=== PATIENT | female | born 1960 | race Caucasian/White ===

== ENCOUNTER 2025-01-30 20:32 | Inpatient (IN) | payer MEDICARE, SELFPAY ==
--- OUTSIDE RECORDS SUMMARY | 2023-08-15 04:15 | XMS_ITS ---
Author Organization [facility] Address [address] [place] [address] Care Team Providers Care Lithographic Photographer Name Role Phone Nanette Easley Primary Care Provider Adam Pratt Unavailable [phone] REASON FOR VISIT Lumbar GORGE L4-5 with Local Encounters Encounter Location Date Provider Diagnosis [facility] [address] [place] [phone] 08/15/2023 Adam Tsai Plan Of Treatment Next Appt Details Provider Name:Vita Malhotra rd, 02/21/2025 02:15:00 PM, [address] [place] [address], [phone], Progress Notes * CT ESTRADAINDOB:1960 (64 yo F)Acc No.[id number]:08/15/2023 Patient:?HELADIO ESTRADA :?Adam Tsai MDDOB:1960???Age:63 Y???Sex: FemaleDate:4Phone:[phone]:[address] [place] [address], [phone]:Nanette Easley * Images: * Electronic signature of Adam Tsai MD on 01/30/2025 at 10:06 PM ESTSign off status: Pending * Provider: Henry Tsai MD Date: 0 08/15/2023 Generated for Printing/Faxing/eTransmitting on:?01/30/2025 10:06 PM EST
--- OUTSIDE RECORDS SUMMARY | 2023-09-04 08:30 | XMS_ITS ---
Author Organization [facility] Address [address] [place] [address] Care Team Providers Care Java Software Developer Name Role Phone Nanette Easley Primary Care Provider Adam Pratt Unavailable [phone] Vita Ivey Unavailable [phone] REASON FOR VISIT B/L GTB inj Encounters Encounter Location Date Provider Diagnosis [facility] [address] [place] [phone] 09/04/2023 Vita Ivey Plan Of Treatment Next Appt Details Provider Name:Vita Malhotra rd, 02/21/2025 02:15:00 PM, [address] [place] [address], [phone], Progress Notes * CT ESTRADAINDOB:1960 (64 yo F)Acc No.[id number]:09/04/2023 Patient:?HELADIO ESTRADA :?AMENA ByrnesDOB:1960???Age: 63 Y???Sex:FemaleDate:4Phone:[phone]:[address] [place], [place]-[address]Pcp:Nanette Easley * Images: * Electronic signature of Vita Ivey CNP on 01/30/2025 at 10:07 PM ESTSign off status: Pending * Provider: AMENA Covington Date: 0 09/04/2023 Generated for Printing/Faxing/eTransmitting on:?01/30/2025 10:07 PM EST
--- OUTSIDE RECORDS SUMMARY | 2024-02-05 08:30 | XMS_ITS ---
Author Organization [facility] Address [address] [place] [address] Care Team Providers Care Jig And Fixture Repairer Name Role Phone Nanette Easley Primary Care Provider Adam Pratt Unavailable [phone] Arlene Chun Unavailable [phone] REASON FOR VISIT Re eval- wants to get another inj Encounters Encounter Location Date Provider Diagnosis [facility] [address] [place] [phone] 02/05/2024 Arlene Chun Plan Of Treatment Next Appt Details Provider Name:Vita Malhotra rd, 02/21/2025 02:15:00 PM, [address] [place] [address], [phone], Progress Notes * JACKIE ESTRADAOB:1960 (64 yo F)Acc No.[id number]:02/05/2024 Patient:?HELADIO ESTRADA :?Arlene Chun CNPDOB:1960???Age:63 Y???Sex:FemaleDate:4Phone:[phone]:[address] [place], [place]Pcp:Nanette Easley Subjective: * Chief Complaints: * 1 . Re eval- wants to get another inj. * Medical History: Objective: * Vitals: Assessment: Plan: * Treatment: Forms: * Images: * Electronic signature of Arlene Chun CNP on 01/30/2025 at 10:08 PM ESTSign off status: Pending * Provider: Estella Chun CNP Date: 04/07/2023 Generated for Printing/Faxing/eTransmitting on:?01/30/2025 10:08 PM EST
--- OUTSIDE RECORDS SUMMARY | 2024-04-02 05:00 | XMS_ITS ---
Author Organization [facility] Address [address] [place] [address] Care Team Providers Care Fork Truck Driver Name Role Phone Nanette Easley Primary Care Provider Adam Pratt Unavailable [phone] Vita Ivey Unavailable [phone] REASON FOR VISIT B/L GTB inj Encounters Encounter Location Date Provider Diagnosis [facility] [address] [place] [phone] 04/02/2024 Vita Ivey Plan Of Treatment Next Appt Details Provider Name:Vita Malhotra rd, 02/21/2025 02:15:00 PM, [address] [place] [address], [phone], Medications Administered Medication Instructions Date of Administration Dosage Notes dexamethasone mLDepo-Eejeyk37 cHsntajszvr96/14/20254 mLBUPIVACAINE mL Progress Notes * JACKIE ESTRADAOB:1960 (64 yo F)Acc No.[id number]:04/02/2024 Patient:?HELADIO ESTRADA :?Vita Ivey APRN-RUPERTDOB:1960???Age: 63 Y???Sex:FemaleDate:04/02/2024Phone:[phone]:[address] [place], [place]-[address]Pcp:Nanette Easley * Images: * Electronic signature of Vita Ivey CNP on 01/30/2025 at 10:08 PM ESTSign off status: Pending * Provider: AMENA Covington Date: 0 04/02/2024 Generated for Printing/Faxing/eTransmitting on:?01/30/2025 10:08 PM EST
--- OUTSIDE RECORDS SUMMARY | 2024-08-03 09:30 | XMS_ITS ---
Author Organization [facility] Address [address] [place] [address] Care Team Providers Care S Iron Worker Name Role Phone Nanette Easley Primary Care Provider Adam Pratt Unavailable [phone] Arlene Chun Unavailable [phone] REASON FOR VISIT re eval Encounters Encounter Location Date Provider Diagnosis [facility] [facility] [address] [place] [phone] 08/03/2024 Arlene Chun Plan Of Treatment Next Appt Details Provider Name:Vita Malhotra rd, 02/21/2025 02:15:00 PM, [address] [place] [address], [phone], Progress Notes * CT ESTRADAINDOB:1960 (64 yo F)Acc No.[id number]:08/03/2024 Patient:?HELADIO ESTRADA :?Arlene Chun CNPDOB:1960???Age:64 Y???Sex:FemaleDate:08/03/2024Phone:[phone]:[address] [place], [place]-[address]Pcp:Nanette Easley Subjective: * Chief Complaints: * 1 . Re eval. * Medical History: Objective: * Vitals: Assessment: Plan: * Treatment: Forms: * Images: * Electronic signature of Arlene Chun CNP on 01/30/2025 at 10:08 PM ESTSign off status: Pending * Provider: Estella Chun CNP Date: 0 08/03/2024 Generated for Printing/Faxing/eTransmitting on:?01/30/2025 10:08 PM EST
--- OUTSIDE RECORDS SUMMARY | 2024-09-06 10:00 | XMS_ITS ---
Author Organization [facility] Address [address] [place] [address] Care Team Providers Care Business Office Technician Name Role Phone Nanette Easley Primary Care Provider Adam Pratt Unavailable [phone] Vita Ivey Unavailable [phone] REASON FOR VISIT re eval Medications Medication SIG (Take, Route, Frequency, Duration) Notes Start Date End Date Status Linzess 145 mcg 1 cap(s) orally once a day ActiveSingulair 10 mg1 tab(s) orally once a dayActivecitalopram 40 mg1 tab(s) orally once a dayActiveNaproxen 500 mg 1 tab(s) orally 2 times a day As needed ActiveLyrica 200 mg1 cap(s) orally 3 times a day; Duration: 30 days07/01/2024 Activefenofibrate 134 mg1 cap(s) orally once a dayActiveatorvastatin 40 mg1 tab(s) orally once a dayActiveImitrexActivecyclobenzaprine 10 mg1 tab(s) orally 2 times a dayActive Encounters Encounter Location Date Provider Diagnosis [facility] [address] [place] [phone] 09/06/2024 Vita Ivey Plan Of Treatment Next Appt Details Provider Name:Vita Malhotra rd, 02/21/2025 02:15:00 PM, [address] [place], [phone], Progress Notes * DORIS ESTRADA:1960 (64 yo F)Acc No.[id number]:09/06/2024 Patient:HELADIO PAVON :?AMENA ByrnesDOB:1960???Age: 64 Y???Sex:FemaleDate:09/06/2024Phone:[phone]:[address] [facility], [phone]:Nanette Easley Subjective: * Chief Complaints: * 1 . Re eval. * Medical History: * Medications: T aking cyclobenzaprine 10 mg tablet 1 tab(s) orally 2 times a day , Taking atorvastatin 40 mg tablet 1 tab(s) orally once a day , Taking fenofibrate 134 mg capsule 1 cap(s) orally once a day , Taking Imitrex , Taking Naproxen 500 mg delayed release tablet 1 tab(s) orally 2 times a day As needed, Taking Singulair 10 mg tablet 1 tab(s) orally once a day , Taking Linzess 145 mcg capsule 1 cap(s) orally once a day , Taking citalopram 40 mg tablet 1 tab(s) orally once a day , Taking Lyrica 200 mg capsule 1 cap(s) orally 3 times a day Objective: * Vitals: Assessment: Plan: * Treatment: Forms: * Images: * Electronic signature of Vita Ivey CNP on 01/30/2025 at 10:07 PM ESTSign off status: Pending * Provider: AMENA Covington Date: 0 09/06/2024 Generated for Printing/Faxing/eTransmitting on:?01/30/2025 10:07 PM EST
[2025-01-30] VITALS (31 sets, daily range): BP systolic 74–97; BP diastolic 42–58; PULSE 103–118; TEMP 37.1–38.3; O2SAT 86–98; BMI 30.7
--- NOTE | 2025-01-30 20:41 | XR_ITS ---
[facility] [place] [id number] Patient Name: HELADIO ESTRADA MRN: [id number] date: 1960 Sex: F Assigned Patient Location: ED.MAIN Current Patient Location: [place] Accession/Order Number: [id number] Exam Date: 01/30/2025 20:50 Report Date: 01/31/2025 09:29 At the request of: AYUSH BURR DO Procedure: XR chest 2V PA AND LATERAL CHEST: CLINICAL HISTORY: COPD . Cough, shortness of breath and right pleuritic chest pain COMPARISON: 12/16/2020 The lungs are hyperinflated. There are subtle reticular nodular changes, greatest at the right base where there is also blunting of the costophrenic angle. This is probably a combination of pleural and parenchymal change. A trace amount pleural fluid on the left is also possible. No pneumothorax is seen. The cardiac, hilar and mediastinal silhouettes are similar including a small to moderate size hiatal hernia. There is slight levoscoliotic curvature as well as mild endplate spurring at the spine. Hemostasis clips are present at the right breast. XR/XR chest 2V IMPRESSION: OBSTRUCTIVE LUNG DISEASE. PLEURAL-PARENCHYMAL CHANGES, GREATER ON THE RIGHT. HIATAL HERNIA. Impression dictated by: Vianca Crowder M.D. 01/31/2025 9:29 AM Dictation Location: [place] [address] Electronically authenticated by: [id number] Y Date: 01/31/2025 09:29
--- NOTE | 2025-01-30 20:42 | ECG_ITS ---
[facility] Test Date: 2025-01-30 Pat Name: Ivan Ramsey Department: Room: - Gender: Female Fixed Wing Aircraft Crew Chief: : 1960 Requested By: [id number] Order Number: [id number] Reading MD: GUALBERTO GARCIA M.D. Measurements Intervals [place] Rate: 114 P: 79 [place]: 136 QRS: 76 QRSD: 74 T: 56 QT: 324 QTc: 392 Interpretive Statements 1120 Sinus tachycardia [address] depression [address] & Twave abnormality 0102 ARTIFACT PRESENT 9150 abnormal ECG No previous ECG available for comparison Electronically Signed On 01-30-2025 22:53:24 EST by GUALBERTO GARCIA M.D.
--- NOTE | 2025-01-30 21:01 | ED_ITS ---
HPI HPI - General Adult General Chief complaint: Shortness of Breath/Dyspnea Stated complaint: SOB Time Seen by Provider: 01/30/25 20:41 Source: patient Mode of arrival: ambulance Limitations: no limitations History of Present Illness HPI narrative: Patient is a 64-year-old female, history significant for hypercholesterolemia and COPD not on home oxygen, presenting to the emergency department for 2-day history of cough and shortness of breath. Patient states that she feels short of breath and has been having right-sided pleuritic chest pain for the last 2 days. She states she has a history of pneumonia, this feels similar. She denies history of previous [place] or coronary artery disease/coronary stents. She denies fevers or chills. No nausea or vomiting, or diarrhea. She states she had a nebulized treatment by EMS which helped her symptoms. She still smokes 1 pack of cigarettes daily. Related Data Home Medications ?Medication ?Instructions ?Recorded ?Confirmed albuterol sulfate 2.5 mg/3 mL mg 01/30/25 (0.083 %) solution for nebulization atorvastatin 40 mg tablet mg 01/30/25 budesonide-formoterol HFA 160 inhalation 01/30/25 mcg-4.5 mcg/actuation aerosol inhaler (Symbicort) citalopram 40 mg tablet mg 01/30/25 galcanezumab-gnlm 120 mg/mL mg subcut 01/30/25 subcutaneous pen injector (Emgality Pen) linaclotide 72 mcg capsule mcg 01/30/25 (Linzess) montelukast 10 mg tablet mg 01/30/25 pantoprazole 40 mg tablet,delayed mg PO 01/30/25 release Allergies Allergy/AdvReac Type Severity Reaction Status Date / Time No Known Drug Allergies Allergy Verified 01/30/25 20:43 Opioid HPI Opioid Management Most Recent Opioid Data: Last Pain Scale 7 01/30/25, 20:39 Review of Systems ROS Status of ROS 10 or more systems reviewed and unremark able except as noted in history and below PFSH PFSH Social History Little interest or pleasure in doing things: not at all Feeling down, depressed, or hopeless: not at all Exam Narrative Exam Narrative: CONSTITUTIONAL: Appears uncomfortable but in no acute distress. Speaking in truncated sentences. Mildly tachypneic. Answering questions and following commands appropriately. SKIN: Was warm and dry. EYES: Sclerae white. EARS, NOSE, THROAT: Moist oral mucosa. RESPIRATORY: Mild bilateral expiratory wheezes. There are crackles at the right lung base. Mildly tachypneic with use of accessory muscles. CARDIOVASCULAR: Tachycardic rate and regular rhythm. There is no S3, S4, murmur, rub. GASTROINTESTINAL: Abdomen is nondistended. MUSCULOSKELETAL: No peripheral edema. NEUROLOGIC: Patient is awake and alert. Facies were symmetrical. Constitutional Vital Signs, click to edit/add: Last Vital Signs Temp 98.8 F 01/31/25 00:38 Pulse 103 H 01/31/25 01:20 Resp 17 01/31/25 01:20 BP 94/57 01/31/25 00:38 Pulse Ox 94 L 01/31/25 01:29 O2 Del Method Nasal Cannula 01/31/25 01:29 O2 Flow Rate 3 01/31/25 01:29 Course Vital Signs Vital signs: Vital Signs Temperature 101.0 F H 01/30/25 20:39 Pulse Rate 118 H 01/30/25 20:39 Respiratory Rate 32 H 01/30/25 20:39 Blood Pressure 74/58 L 01/30/25 20:39 Pulse Oximetry 86 L 01/30/25 20:39 Oxygen Delivery Method Room Air 01/30/25 20:39 Temperature 98.8 F 01/31/25 00:38 Pulse Rate 103 H 01/31/25 01:20 Respiratory Rate 17 01/31/25 01:20 Blood Pressure 94/57 01/31/25 00:38 Pulse Oximetry 94 L 01/31/25 01:29 Oxygen Delivery Method Nasal Cannula 01/31/25 01:29 Oxygen Delivery Flow Rate 3 01/31/25 01:29 Medical Decision Making MDM Narrative Medical decision making narrative: Patient is a 64-year-old female, history significant for COPD, presenting to the emergency department with a 2-day history of shortness of breath, cough, and right-sided pleuritic chest pain. Her vital signs on arrival were significant for hypoxia to 86% on room air. She is now saturating 93% on 5 L nasal cannula. She is borderline hypotensive, tachycardic, and febrile with a temperature of 101 ?F. She is tachypneic with a respiratory rate of 32 breaths/min with mild expiratory wheezes and crackles at the right lung base. My clinical impression is that the patient's presentation is secondary to community-acquired pneumonia, COPD exacerbation. IV was established and laboratory studies were obtained to rule out ACS, arrhythmia, or other electrolyte/metabolic derangement. She was treated with nebulized albuterol/ipratropium. She was given 1.5 L bolus IV normal saline. 12 Lead EKG: Sinus tachycardia at a rate of 114. Normal axis. No ST segment elevations. Subtle ST segment depressions globally. QRS, [place], and QTc interval within normal limits. Final impression: Sinus tachycardia with subtle ST depressions. No evidence of STEMI. Chest x-ray independent reviewed by myself demonstrated hazy airspace opacities bilaterally, worse in the right lower lobe. Concerning for developing pneumonia. Laboratory studies were significant for microcytic, hypochromic anemia but hemoglobin of 5.9. The patient states she has chronic microcytic anemia, and has not had an iron transfusion in over a year. She states she did have an EGD/colonoscopy 1 year ago which was normal. For her acute on chronic anemia, she was given 1 unit of packed red blood cells. A fecal occult blood test was obtained which was negative. No leukocytosis. No electrolyte derangement. No significant metabolic derangement. Lactic acid level negative. Troponin not elevated. BNP elevated to 1966. Influenza/COVID swabs negative. CT angiography of the chest demonstrated diffuse interstitial infiltrate with multiple small nodular densities in tree-in-bud appearance suggesting bronchiolitis, probably related to infectious/inflammatory etiology. Bilateral trace pleural effusions. No evidence of PE. Patient's presentation is consistent with COPD exacerbation, right lower lobe pneumonia, and acute on chronic microcytic anemia. She was consented and given 1 unit of packed red blood cells. She was empirically treated with IV ce ftriaxone and IV doxycycline for CAP. Patient will require admission to the hospital for further care. I did consult discussed the patient with hospitalist, Dr. Porter, who accept the patient to his service. At the time of admission, patient is saturating 94% on 3 L nasal cannula. She is afebrile. She has a heart rate 103 bpm with a blood pressure of 94/57 mmHg. FINAL IMPRESSION: #Acute hypoxic respiratory failure secondary to COPD exacerbation, community-acquired pneumonia #Acute on chronic microcytic anemia requiring blood transfusion DISPOSITION: Admitted to the hospital CONDITION: Fair Medical Records Medical records reviewed: Yes I reviewed the patient's medical records Lab Data Lab results reviewed: Yes I reviewed the patient's lab results Labs: Lab Results 01/30/25 01/30/25 01/30/25 Range/Units 20:50 20:54 21:29 WBC 11.1 H (4.0-11.0) 10^3/uL RBC 3.10 L (4.20-5.40) 10^6/uL Hgb 5.9 L* (12.0-16.0) g/dL Hct 22.3 L* (36.0-48.0) % MCV 71.9 L (81.0-99.0) fL MCH 19.0 L (26.7-34.0) pg MCHC 26.5 L (29.9-35.2) g/dL RDW 19.2 H (11.0-15.0) % Plt Count 317 (150-450) 10^3/uL MPV 10.7 (9.5-13.5) fL Seg Neuts % (Manual) 89.0 H (43.0-75.0) Lymphocytes % (Manual) 4.0 L (20.5-60.0) % Monocytes % (Manual) 6.0 (1.7-12.0) % Eosinophils % (Manual) 0.0 L (0.9-7.0) % Basophils % (Manual) 0.0 L (0.2-2.0) % Myelocytes % 1.0 Neutrophils # (Manual) 9.87 H (1.4-6.5) 10^3/uL Lymphocytes # (Manual) 0.44 L (1.20-3.80) 10^3/uL Monocytes # (Manual) 0.66 (0.30-0.80) 10^3/uL Eosinophils # (Manual) 0.00 (0.00-0.70) 10^3/uL Basophils # (Manual) 0.00 (0.00-0.10) 10^3/uL Myelocytes # 0.11 Sodium 134 L (136-145) mmol/L Potassium 3.8 (3.5-5.1) mmol/L Chloride 98 (98-107) mmol/L Carbon Dioxide 27.8 (21.0-32.0) mmol/L Anion Gap 12.0 BUN 13.0 (7.0-18.0) mg/dL Creatinine 0.74 (0.55-1.02) mg/dL Est GFR ( Amer) >60 (>=60 mL/min/1.73m^2) Est GFR (Non-Af Amer) >60 (>=60 mL/min/1.73m^2) BUN/Creatinine Ratio 17.6 Glucose 181 H (74-106) mg/dL Lactate 1.2 (0.4-2.0) mmol/L Calcium 9.0 (8.5-10.1) mg/dL Total Bilirubin 0.6 (0.2-1.0) mg/dL AST 15 (15-37) U/L ALT 11 L (14-59) U/L Alkaline Phosphatase 80 (46-116) U/L Troponin I High Sens 39.2 (4.0-51.3) pg/mL NT-Pro-B Natriuret Pep 1966.0 H* (<=900.0) pg/mL Total Protein 6.8 (6.4-8.2) g/dL Albumin 2.6 L (3.4-5.0) g/dL Globulin 4.2 g/dL Albumin/Globulin Ratio 0.6 Stool Occult Blood Influenza Type A Ag Negative Influenza Type B Ag Negative SARS-CoV-2 Ag (CV2AG) Negative (NEGATIVE) Blood Type A Positive Antibody Screen Negative Crossmatch See Detail 01/31/25 Range/Units 00:43 WBC (4.0-11.0) 10^3/uL RBC (4.20-5.40) 10^6/uL Hgb (12.0-16.0) g/dL Hct (36.0-48.0) % MCV (81.0-99.0) fL MCH (26.7-34.0) pg MCHC (29.9-35.2) g/dL RDW (11.0-15.0) % Plt Count (150-450) 10^3/uL MPV (9.5-13.5) fL Seg Neuts % (Manual) (43.0-75.0) Lymphocytes % (Manual) (20.5-60.0) % Monocytes % (Manual) (1.7-12.0) % Eosinophils % (Manual) (0.9-7.0) % Basophils % (Manual) (0.2-2.0) % Myelocytes % Neutrophils # (Manual) (1.4-6.5) 10^3/uL Lymphocytes # (Manual) (1.20-3.80) 10^3/uL Monocytes # (Manual) (0.30-0.80) 10^3/uL Eosinophils # (Manual) (0.00-0.70) 10^3/uL Basophils # (Manual) (0.00-0.10) 10^3/uL Myelocytes # Sodium (136-145) mmol/L Potassium (3.5-5.1) mmol/L Chloride (98-107) mmol/L Carbon Dioxide (21.0-32.0) mmol/L Anion Gap BUN (7.0-18.0) mg/dL Creatinine (0.55-1.02) mg/dL Est GFR ( Amer) (>=60 mL/min/1.73m^2) Est GFR (Non-Af Amer) (>=60 mL/min/1.73m^2) BUN/Creatinine Ratio Glucose (74-106) mg/dL Lactate (0.4-2.0) mmol/L Calcium (8.5-10.1) mg/dL Total Bilirubin (0.2-1.0) mg/dL AST (15-37) U/L ALT (14-59) U/L Alkaline Phosphatase (46-116) U/L Troponin I High Sens (4.0-51.3) pg/mL NT-Pro-B Natriuret Pep (<=900.0) pg/mL Total Protein (6.4-8.2) g/dL Albumin (3.4-5.0) g/dL Globulin g/dL Albumin/Globulin Ratio Stool Occult Blood Negative Influenza Type A Ag Influenza Type B Ag SARS-CoV-2 Ag (CV2AG) (NEGATIVE) Blood Type Antibody Screen Crossmatch Imaging Data CT scan - chest: Attestation: I personally reviewed and interpreted this imaging study as follows: ECG Data Attestation: I personally reviewed and interpreted this ECG as follows: Discharge Plan Discharge Chief Complaint: Shortness of Breath/Dyspnea Clinical Impression: Community acquired pneumonia, Hypoxia, COPD exacerbation Patient Disposition: Admitted As Inpatient Time of Disposition Decision: 02:22 Condition: Fair
[2025-01-30 21:09] LABS: Mean Corpuscular HGB Conc 26.5 g/dL (29.9-35.2); Mean Corpuscular Hemoglobin 19.0 pg (26.7-34.0); Mean Corpuscular Volume 71.9 fL (81.0-99.0); Platelet Count 317 10^3/uL (150-450); Red Blood Count 3.10 10^6/uL (4.20-5.40); White Blood Count 11.1 10^3/uL (4.0-11.0)
[2025-01-30 21:11] LABS: Hematocrit 22.3 % (36.0-48.0); Hemoglobin 5.9 g/dL (12.0-16.0)
[2025-01-30] MEDS: IPRATROPIUM/ALBUTEROL SULFATE 3 ML AMPUL.NEB 6 ML IH (21:19)
[2025-01-30] MEDS: 0.9 % SODIUM CHLORIDE 1,000 ML 1000 ML IV (21:20)
[2025-01-30] MEDS: IBUPROFEN 600 MG TABLET PO (21:21)
[2025-01-30 21:25] LABS: SARS-CoV-2 Ag NEGATIVE (NEGATIVE)
[2025-01-30 21:30] LABS: Lactate/Lactic Acid 1.2 mmol/L (0.4-2.0)
[2025-01-30 21:34] LABS: Basophils Abs Manual 0.00 10^3/uL (0.00-0.10); Basophils Percent Manual 0.0 % (0.2-2.0); Eosinophils Absolute Manual 0.00 10^3/uL (0.00-0.70); Eosinophils Percent Manual 0.0 % (0.9-7.0); Lymphocytes Absolute Manual 0.44 10^3/uL (1.20-3.80); Lymphocytes Percent Manual 4.0 % (20.5-60.0); Monocytes Absolute Manual 0.66 10^3/uL (0.30-0.80); Monocytes Percent Manual 6.0 % (1.7-12.0); Myelocytes % Manual 1.0; Myelocytes Absolute Manual 0.11; Segmented Neut Absolute Manual 9.87 10^3/uL (1.4-6.5); Segmented Neutrophils % Manual 89.0 (43.0-75.0)
[2025-01-30 21:35] LABS: Alanine Aminotransferase 11 U/L (14-59); Albumin Globulin Ratio 0.6; Albumin Level 2.6 g/dL (3.4-5.0); Alkaline Phosphatase 80 U/L (46-116); Aspartate Amino Transferase 15 U/L (15-37); Blood Urea Nitrogen 13.0 mg/dL (7.0-18.0); Calcium 9.0 mg/dL (8.5-10.1); Carbon Dioxide 27.8 mmol/L (21.0-32.0); Estimated GFR (African America >60 (>=60 mL/min/1.73m^2); Estimated GFR (Non-African Ame >60 (>=60 mL/min/1.73m^2); Globulin 4.2 g/dL; Glucose 181 mg/dL (74-106); Total Protein 6.8 g/dL (6.4-8.2)
[2025-01-30 21:37] LABS: NT Pro B Type Natriuretic Pept 1966.0 pg/mL (<=900.0)
[2025-01-30 21:41] LABS: Anion Gap 12.0; Chloride 98 mmol/L (98-107); Potassium 3.8 mmol/L (3.5-5.1); Sodium 134 mmol/L (136-145)
--- OUTSIDE RECORDS SUMMARY | 2025-01-30 22:07 | XMS_ITS | Clinical Summary ---
Author Organization [facility] Address [address] [place] [address] Care Team Providers Care Mothercraft Nurse Name Role Phone Nanette Easley MD Unavailable Avi Rabago DO Unavailable Allergies Active AllergyReactionsCriticalityNoted DateCommentsDust Mite Lbevuya1208/28/2023 Medications MedicationSigDispense QuantityRefillsLast FilledStart DateEnd DateStatus atorvastatin (Lipitor) 40 MG tablet Take 1 tablet by mouth DailyActive citalopram (CeleXA) 10 MG tablet every 12 (twelve) hoursActive etodolac (Lodine) 300 MG capsule every 8 (eight) hoursActive fenofibrate (Tricor) 145 MG tablet Take 1 tablet by mouth Daily07/01/2023ctive folic acid (Folvite) 1 MG tablet 1 (one) time each day at the same timeActive montelukast (Singulair) 10 MG tablet 1 (one) time each day at the same timeActive ondansetron ODT (Zofran-ODT) 4 MG disintegrating tablet Take 1 tablet by mouth every 8 (eight) hours if neededActive pregabalin (Lyrica) 200 MG capsule 1 (one) time each day at the same timeActive albuterol (2.5 MG/3ML) 0.083% nebulizer solution INHALE 3ml via NEBULIZER EVERY 4 TO 6 HOURS NEEDED FOR WHEEZING OR SHORTNESS OF IIAHRM5806/25/2023ctive Ascorbic Acid (vitamin C) 1000 MG tablet Take 1 tablet by mouth DailyActive b complex vitamins capsule Take 1 capsule by mouth DailyActive wqpjwvzgqw-zifiedqlzzgxc-mlpeezsu 50-325-40 MG tablet TAKE 1 TABLET BY MOUTH EVERY 6 HOURS NEEDED FOR migraine. TO last 30 DAYS. 05/21/2023ctive cholecalciferol (Vitamin D-3) 125 MCG (5000 UT) capsule Take 1 capsule by mouth DailyActive famotidine (Pepcid) 10 MG tablet Take 1 tablet by mouth 2 (two) times a day as neededActive fenofibrate micronized (Lofibra) 134 MG capsule Take 134 mg by mouth Daily05/21/2023ctive ferrous sulfate 325 (65 Fe) MG tablet Take 1 tablet by mouth in the morning. Take with meals.04/17/2023ctive Linzess 72 MCG capsule Take 72 mcg by mouth DailyActive pantoprazole (ProtoNix) 40 MG EC tablet Take 40 mg by mouth Daily09/09/2023ctive citalopram (CeleXA) 40 MG tablet Take 40 mg by mouth Daily09/09/2023ctive hydrOXYzine HCl (Atarax) 25 MG tablet Take 25 mg by mouth every 8 (eight) hours if needed for ljgzbov9312/26/2023ctive hyoscyamine ER (Levbid) 0.375 MG 12 hr tablet Take 375 mcg by mouth in the morning and 375 mcg before bedtime.02/24/2024tive Spiriva HandiHaler 18 MCG inhalation capsule take TWO inhalations BY MOUTH OF ONE CAPSULE ONCE DAILY02/24/2024tive galcanezumab (Emgality) 120 MG/ML auto-injector Indications:Other migraine without status migrainosus, not intractableInject 1 Syringe (120 mg) under the skin every 30 (thirty) days 1.12 mL 605Active SUMAtriptan (Imitrex) 100 MG tablet Indications:Other migraine without status migrainosus, not intractableTake 1 tablet (100 mg) by mouth 1 (one) time if needed for migraine (TAKE 1 TABLET BY MOUTH AT ONSET OF MIGRAINE. MAY REPEAT ONCE AFTER 2 HOURS IF NEEDED DO NOT EXCEED TWO doses IN 24 hours) 9 tablet 5Active cyclobenzaprine (Flexeril) 10 MG tablet Indications:Other migraine without status migrainosus, not intractableTake 1 tablet (10 mg) by mouth 2 (two) times a day as needed for muscle spasms 60 tablet 5Active Active Problems ProblemNoted DateDiagnosed DateOccipital xvggqlais06/11/4254Ymrategv07/11/2024 Overview (09/29/2023): Patient has a history of chronic migraine sometimes with visual aura, previously with 15+ migrainesper month. With Emgality, migraine frequency and intensity has substantially improved. She does have a few minor headaches with weather changes. She has failed gabapentin, lyrica, topiramate, lamotrigine, singulair, cyclobenzaprine, and Aimovig. Avoiding BP lowering medications due to hypotension. Currently getting 2-3 breakthrough migraines per month which are amendable to sumatriptan and sleep.She does admit that severe migraines are debilitating and cause visual disturbance which interfereswith her job. - PLAN - Continue Emgality monthly injections. - Continue sumatriptan 100mg as needed for breakthrough migraines - Recommended optho evaluation, per patient she does this annually - Continue cyclobenzaprine 10mg BID, prn - We will continue to allow up to 2 FMLA days for the patients migraine/neck pain as this has been provided to her in the past and she does not feel safe completing her work day when migraines are severe. 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 She is status post surgical intervention approximately in [address] Fink. She is seeing pain management for her lumbar spine and is interested in following with them for her cervicogenic pain. PLAN: - Previously referred to pain management for cervical spine/neck pain - Follow up with neurosurgery as recommended (Dr. Tsai) Family History Medical HistoryRelationNameCommentsHypertensionOtherRelationNameStatusComments Other Social History Tobacco UseTypesPacks/DayYears UsedDateSmoking Tobacco: Unknown Tobacco Cessation:Counseling Given: Not Answered Alcohol UseStandard Drinks/WeekCommentsNot Currently1 (1 standard drink = 0.6 oz pure alcohol)CommentsUnknownSex and Gender InformationValueDate Recorded Sex Assigned at BirthNot on fileLegal TkgEoocbw43/15/2023 6:39 PM EDTGender IdentityNot on fileSexual OrientationNot on file Last Filed Vital Signs Vital SignReadingTime TakenCommentsBlood Gfiyqdpu493/8103/17/2024 1:18 PM EST Wptcv41779/29/2025 1:18 PM ESTTemperature--Respiratory Rate--Oxygen Saturation-- Inhaled Oxygen Concentration--Nxlssf36.8 kg (165 lb)03/17/2024 1:18 PM ESTHeight 160 cm (5' 3 )10/06/2023 10:54 AM EDTBody Mass Index29.23010/06/2023 10:54 AM EDT Plan of Treatment Not on file Insurance Care Teams Team MemberRelationshipSpecialtyStart DateEnd Nanette Easley MD [address] [place] [address] Referring PhysicianFamily [facility]10/06/23 Avi Rabago DO [address] [place] [address] Referring PhysicianNeurology1
--- OUTSIDE RECORDS SUMMARY | 2025-01-30 22:07 | XMS_ITS | Clinical Summary ---
Author Organization [facility] Address [address] [place] [address] Care Team Providers Care Radiation Control Worker Name Role Phone Unavailable Primary Care Provider Unavailabl e Social History Tobacco UseTypesPacks/DayYears UsedDateSmoking Tobacco: Never Assessed CommentsUnknownSex and Gender InformationValueDate RecordedSex Assigned at Not on fileLegal ZwlFijsvq59/29/2022 9:21 PM EDTGender IdentityNot on fileSexual OrientationNot on file Plan of Treatment Not on file
--- OUTSIDE RECORDS SUMMARY | 2025-01-30 22:07 | XMS_ITS | Clinical Summary ---
Author Organization [facility] Address [address] [place], [place] [id number] Care Team Providers Care Welfare Worker Name Role Phone Tamiko Vaughn APRN.INTEGRITY ANALYST Primary Care Provide r Allergies No known active allergies Medications MedicationSigDispense QuantityRefillsLast FilledStart DateEnd DateStatus citalopram (CELEXA) 40 mg tablet Take 40 mg by mouth once daily.Active lamoTRIgine (LAMICTAL) 100 mg tablet Take 100 mg by mouth twice daily.Active etodolac (LODINE) 200 mg capsule Take 200 mg by mouth twice daily.Active omeprazole (PRILOSEC) 20 mg capsule Take 40 mg by mouth twice daily.Active hyoscyamine SR (LEVBID) 0.375 mg 12 hr tablet Take 0.375 mg by mouth every 12 hours as needed.Active HYDROcodone-Acetaminophen (NORCO) 10-325 mg per tablet Take 1 tablet by mouth every 6 hours as needed.Active SUMAtriptan-Naproxen (TREXIMET) 85-500 mg per tablet Take 1 tablet by mouth as needed.Active Active Problems ProblemNoted DateDiagnosed DateHiatal vyjuki6809/21/2014RUQ pain09/21/2014Nausea 09/21/2014 Family History RelationStatusCommentsFatherAliveMotherDeceasedSisterAlive Social History Tobacco UseTypesPacks/DayYears UsedDateSmoking Tobacco: Every NvvNolvswwdlw099 Alcohol UseStandard Drinks/WeekCommentsYes0 (1 standard drink = 0.6 oz pure alcohol)occasionallyCommentsUnknownSex and Gender InformationValueDate RecordedSex Assigned at BirthNot on fileLegal CtnJdtdht48/02/2012 10:23 AM EST Gender IdentityNot on fileSexual OrientationNot on file Last Filed Vital Signs Vital SignReadingTime TakenCommentsBlood Zlmfxkop345/7310/10/2014 1:08 PM EDT Trwzz950510/10/2014 1:08 PM DQMXshpzlbbexx14.8 ??C (98.2 ??F)10/10/2014 1:08 PM EDTRespiratory Rdum907110/10/2014 1:08 PM EDTOxygen Zpovujbrfo75%10/10/2014 1:08 PM EDTInhaled Oxygen Concentration--Zsarpf48.3 kg (203 lb 6.4 oz)09/21/2014 12:19 PM TPBHtafyk962.3 cm (5' 3.5 )09/21/2014 12:19 PM EDTBody Mass Index35.47 09/21/2014 12:19 PM EDT Plan of Treatment Health MaintenanceDue DateLast DoneCommentsAnxiety Qqsrehrjd75/08/1978Depression Sitokbtax18/08/1978HIV Eywpkfmrc76/08/1978Hepatitis C Lbkwpehhn17/08/1978 DTaP,Tdap,Td Vaccine (1 - Tdap)05/25/1978Mammogram Htwsjlkhq01/08/2000CT Gepsdzmvjjfe51/08/2005Cologuard (FIT-DNA)05/25/20049440Qvdivvqhvwa35/08/2005 Colorectal Cancer Ecsleswrq12/08/2005Diabetes Jlpvxxofi66/08/2005Fecal Occult Blood05/25/2004Lipid Yusjqtebo29/08/9841Olbzuewccdlzx59/08/2005Pneumococcal Vaccine: 50+ (1 of 1 - PCV)05/25/2009Shingrix Vaccine (1 of 2)05/25/2009dvance Directive Vyytloziwg09/08/2025one Density Ahthypkph61/08/2025ovid-19 Vaccine (1 - 2024- season)2024Influenza Vaccine (#1)2024RSV Vaccine (1 - 1-dose 75+ series)05/25/2034 Insurance MemberSubscriberPlan / Payer (Effective 2018-Present)Name:Ivan Ramsey Relation to Subscriber:SelfName:Ivan Ramsey Payer ID:Not on file Type:PPO Address: [place] [id number] Care Teams Team MemberRelationshipSpecialtyStart DateEnd Date Tamiko Vaughn APRN.INTEGRITY ANALYST PCP - GeneralFamily Medicine09/01/14
[2025-01-30] MEDS: DOXYCYCLINE HYCLATE 100 MG in 0.9 % SODIUM CHLORIDE 100 ML IV (22:08)
--- OUTSIDE RECORDS SUMMARY | 2025-01-30 22:08 | XMS_ITS | Clinical Summary ---
Author Organization [facility] Address [id number] [address] [place] [address] Care Team Providers Care Breeding Technician Name Role Phone TraceeNanette deal Estella DANCE THERAPIST-[facility] Primary Care Provider + Social History Tobacco UseTypesPacks/DayYears UsedDateSmoking Tobacco: Never AssessedChildcare AnswerDate OkchyimbDhllruvwpFpzsave00/12/2019EmploymentAnswerDate Recorded RfmshodvuhZmroxhp93/12/2019Purpose - LifeAnswerDate RecordedPurpose and direction in ikjnIursynr00/11/2021CommentsUnknownSex and Gender InformationValueDate RecordedSex Assigned at BirthNot on fileLegal SexFemale 10/18/2014 7:48 PM EDTGender IdentityNot on fileSexual OrientationNot on file Plan of Treatment Health MaintenanceDue DateLast DoneCommentsDepression Zyrnwmruu06/08/1972Tobacco Qovzfmenw78/08/1972Adult BMI Qtrdrrvic74/08/1978Zoster (Shingles) Vaccine (2 of 3)Fall Risk Dmwzaxkpk79/08/2025DTaP,Tdap and Td Vaccines (2 - Td or Tdap)COVID-19 Vaccine (3 - 2024- season)2024 06/28/2020, 05/31/2020Influenza Xiweeul71/06/2019, 11/26/2019, 01/08/2019, Additional history existsRSV ( or age 60+ yrs) (1 - 1-dose 75+ series)05/25/2034 Medical Devices Not on file Insurance Care Teams Team MemberRelationshipSpecialtyStart DateEnd Date Nanette Easley, DANCE THERAPIST-PHOTOGRAPHER HELPER PCP - GeneralNurse Practitioner10/17/20
--- OUTSIDE RECORDS SUMMARY | 2025-01-30 22:08 | XMS_ITS | Patient Health Record ---
Author Organization [facility] Address [address] [place] [address] Care Team Providers Care Quality Assurance/R&D Lab Technician Name Role Phone Nanette Easley Primary Care Provider UnavailAdam Modi Unavailable [phone] Arlene Chun Unavailable [phone] Vita Ivey Unavailable [phone] Allergies No Known Allergies Reason For Referral Reason Lumbar GORGE L4-L5 wit h LOCAL Diagnosis 1 Lumbar radiculitis ( M54.16) Referral Organization [facility] Referring Provider First Name Adam Referring Provider Last Name Eulalio Referring Provider Speciality Pain Manag ement Referred Organization [facility] Referred Provider Adam Tsai Referred Address [address] [place] [phone], Referred Provider Specialty Anesthesiolo gy General Notes Kirsten Storey 02/16/2024 02:23:26 PM > availity for approval entered cpt dx and location - approved auth#[id number] -- 02/26--04/16 Referral Priority Routine Reason BL Greater Troch Bur sa Diagnosis 1 Greater trochanteric bursitis (M70.60) Referral Organization [facility] Referring Provider First Name Adam Referring Provider Last Name Eulalio Referring Provider Speciality Pain Manag ement [facility] Referred Provider Adam Tsai Referred Address [address] [place] [phone],[place] Referred Provider Specialty Anesthesiolo gy Procedure 1 Injection major join t/bursa () General Notes Kirsten Storey 02/16/2024 02:58:14 PM > availity for approval entered cpt dx and location - approved auth#[id number] Referral Priority Routine Medications Medication SIG (Take, Route, Frequency, Duration) Notes Start Date End Date Status Linzess 145 mcg 1 cap(s) orally once a day ActiveLyrica 200 mg1 cap(s) orally 3 times a day; Duration: 30 days01/24/2025 ActiveSingulair 10 mg1 tab(s) orally once a dayActivecitalopram 40 mg1 tab(s) orally once a dayActivefenofibrate 134 mg1 cap(s) orally once a dayActive atorvastatin 40 mg1 tab(s) orally once a dayActiveNaproxen 500 mg 1 tab(s) orally 2 times a day As needed ActiveImitrexActivecyclobenzaprine 10 mg1 tab(s) orally 2 times a dayActive Social History Tobacco Use: Social History Observation Description Date Details (start date - stop date) Current Smoker NA - NA AUDIT-C (Standard) Question Answer Notes Did you have a drink containing alcohol in the p ast year? Yes How often did you have six or more drinks on one occasion in the past year?Never (0 point)How many drinks did you have on a typical day when you were drinking in the past year?1 or 2 drinks (0 point)How often did you have a drink containing alcohol in the past year?2 to 4 times a month (2 points)Lnpepi3Wfnoreqzbhcoem NegativeTobacco Control (Standard) Question Answer Notes Tobacco use: Current every day smoker Problems Problem Type SNOMED Code ICD Code Onset Dates Problem Status W/U Status Risk Notes Problem Enthesopathy of hip region (3093 6004) Greater trochanteric bursitis (M70.60) ActiveconfirmedProblemLumbar radiculitis (78308237277868141)Lumbar radiculitis (M54.16)ActiveconfirmedProblemDisorder of lumbar disc (016685755)Lumbar disc disease (M51.9)ActiveconfirmedProblemLumbar spondylosis (312397701)Lumbar spondylosis (M47.816)Activeconfirmed Vital Signs Height 5'2 in 02/16/2024 Kpaqax845 lbs1MI32.9202/16/2024 Procedures Procedure Date Ordered Date Performed Result Body Sit e Injection major joint/bursa 02/16/2024 02/16/2024 N/A LUMBAR ESIN/A Encounters Encounter Location Date Provider Diagnosis [facility] [address] [place] [phone] 02/16/2024 Anaheim Ivey Lumbar radiculitis M54.16 ; Lumbar spondylosis M47.816 and Greater trochanteric bursitis M70.60 [facility] [address] [place] [address], [place] [address] 02/27/2024 Adam Tsai Lumbar radiculitis M54.16 [facility] [address] [place] [address] 02/02/2024 Arlene Adiel Lumbar radiculitis M54.16 [facility] [address] [place] [phone] 07/01/2024 Arlene Adiel Lumbar radiculitis M54.16 [facility] [address] [place] [phone] 01/24/2025 Arlene Adiel Lumbar radiculitis M54.16 Assessments Encounter Date Diagnosis (ICD Code) Assessment Notes Treatment Notes Treatment Clinical Notes Section Notes 02/02/2024 Lumbar radiculitis (ICD-10 - M54 .16) 02/16/2024Lumbar spondylosis (ICD-10 - M47.816)02/16/2024Lumbar radiculitis (ICD-10 - M54.16)02/27/2024Lumbar radiculitis (ICD-10 - M54.16)07/01/2024Lumbar radiculitis (ICD-10 - M54.16)01/24/2025Lumbar radiculitis (ICD-10 - M54.16) 02/16/2024Greater trochanteric bursitis (ICD-10 - M70.60)02/16/2024Other After thorough history, physical examination, and review of patient's previous treatments and imaging results, a description of the patient's painful diagnoses was performed. This was discussed with patient today with use of diagrams and plastic models. Risks and benefits associated with treatments were discussed and the following plan was developed with the patient 1. Interventional The patient will be scheduled to undergo lumbar GORGE after evaluation revealed symptoms consistent with lumbar radicular pain. Recent advanced imaging, including MRI and/or CT scan, shows evidence forstenosis at the level corresponding with the recommended injection. This lumbar GORGE will be performed at L4-L5 with LOCAL only. This injection has provided significant relief previously and was recommended to be repeated. Patient agreed. She will also be scheduled undergo bilateral GTB injections here in the office after her epidural injection has been completed. These have provided relief previously when performed. 2. Medications No new medications were prescribed at today's visit. The patient was encouraged to continue with their current medication regimen as prescribed by other providers. They were also encouraged to continue with any OTC medications that they may be taking at this time to managing their symptoms. She will continue with Lyrica 200 mg 3 times daily at this time as she does find this to be beneficial. No refills were requested today as she has enough medication. 3. Activity Patient will continue with physical activity as tolerated and continue performing at-home exercisesas previously instructed. 4. Follow up The patient will follow up after the completion of their procedure for further evaluation and treatment. This will serve as a History & Physical for any recommended procedures in the future if scheduled within 30 days of today's visit. This note was generated using a speech recognition program and may contain errors due to phonetic interpretation. Plan Of Treatment Next Appt Details Provider Name:Vita Malhotra rd, 02/21/2025 02:15:00 PM, [address] [place] [address], [phone], Insurance Providers Payer Name Payer Address Payer Phone Subscriber Number Group Number Insured Name Patient Relationship to Insured Coverage Start Date Coverage End Date Medicare Human [address] [address] [place] [address] [id number] HELADIO ESTRADA Self - patient is the insured 5 Medications Administered Medication Instructions Date of Administration Dosage Notes BUPIVACAINE mLDepo-Csomce38 vIpxkgtbmqfucvz29/14/20251 mLlidocaine mL Medical (General) History Medical History History ICD Code Depression Breast cancerMigrainesRefluxCOPDSurgical History Surgery Date(Month/Year) Right breast reconstruction Right breast mastectomyLeft knee arthroscopyRight shoulder arthroscopyRight knee Tubal ligationTonsillectomyCholecystectomy (gallbladder removal)
[2025-01-31] VITALS (37 sets, daily range): BP systolic 61–128; BP diastolic 49–83; PULSE 76–114; TEMP 36.4–37.1; O2SAT 83–96; BMI 30.3; BMI 29.8
[2025-01-31] MEDS: PANTOPRAZOLE SODIUM 40 MG VIAL IV (04:10)
[2025-01-31] MEDS: 0.9 % SODIUM CHLORIDE 250 ML 10 ML IV (04:12)
[2025-01-31] MEDS: METHYLPREDNISOLONE SOD SUCC PF 40 MG/ML VIAL IVP ×2 (04:26→10:39)
[2025-01-31] MEDS: IPRATROPIUM/ALBUTEROL SULFATE 3 ML AMPUL.NEB IH ×3 (07:26→22:02)
[2025-01-31 08:18] LABS: Hematocrit 29.1 % (36.0-48.0); Hemoglobin 8.4 g/dL (12.0-16.0); Mean Corpuscular HGB Conc 28.9 g/dL (29.9-35.2); Mean Corpuscular Hemoglobin 22.0 pg (26.7-34.0); Mean Corpuscular Volume 76.2 fL (81.0-99.0); Platelet Count 276 10^3/uL (150-450); Red Blood Count 3.82 10^6/uL (4.20-5.40); White Blood Count 9.3 10^3/uL (4.0-11.0)
[2025-01-31 08:34] LABS: Reticulocyte Pct Auto 0.79 % (0.60-3.10)
[2025-01-31 08:38] LABS: Alanine Aminotransferase 17 U/L (14-59); Albumin Globulin Ratio 0.6; Albumin Level 2.7 g/dL (3.4-5.0); Alkaline Phosphatase 91 U/L (46-116); Anion Gap 13.4; Aspartate Amino Transferase 22 U/L (15-37); Blood Urea Nitrogen 13.0 mg/dL (7.0-18.0); Calcium 9.2 mg/dL (8.5-10.1); Carbon Dioxide 27.7 mmol/L (21.0-32.0); Chloride 101 mmol/L (98-107); Estimated GFR (African America >60 (>=60 mL/min/1.73m^2); Estimated GFR (Non-African Ame >60 (>=60 mL/min/1.73m^2); Globulin 4.7 g/dL; Glucose 140 mg/dL (74-106); Potassium 4.1 mmol/L (3.5-5.1); Sodium 138 mmol/L (136-145); Total Protein 7.4 g/dL (6.4-8.2)
[2025-01-31 08:55] LABS: Magnesium 1.9 mg/dL (1.8-2.4)
[2025-01-31 09:24] LABS: Iron 52.0 ug/dL (50.0-170.0); Percent Iron Saturation 12.0 %; Total Iron Binding Capacity 435.0 ug/dL (250.0-450.0)
--- NOTE | 2025-01-31 09:51 | CM.NOTE ---
Important Message From Medicare discussed with pt, pt verbalizes understanding and signs paper. Original given to pt and copy placed on pt's chart.
--- NOTE | 2025-01-31 10:13 | PM.IMHP1 ---
Internal Medicine - H&P: HPI History of Present Illness Chief complaint: COPD EXACERBATION, PNEUMONIA Narrative: Ivan Ramsey is a 64 y/o F, history of smoking, hyperlipidemia, COPD not on home oxygen, iron deficiency anemia requiring IV iron infusions, presented to [place] emergency room with progressive shortness of breath starting on 01/27/2025, found to be hypoxic for COPD exacerbation versus pneumonia prompting request for medical admission. On assessment at bedside on the regular nursing floor, patient resting comfortably in bed, feels improved from presentation. States she has had generalized malaise with pleuritic chest pain and shortness of breath with deep breaths, subjective fevers on 01/27/2025, started taking nebulized albuterol once per prior to admission with slight relief of symptoms but persistent. Denies any substernal pressure, unable to assess baseline shortness of breath with exertion but does feel winded when playing with grandkids and unable to lay flat while sleeping. Denies any nausea, vomiting, no dark stools or bright blood per rectum. In the in the emergency room, WBC 11.1, hemoglobin 5.9, platelet count 317, sodium 134, potassium 3.8, BUN 13, creatinine 0.74, high-sensitivity troponin I 39.2, NT-proBNP 1966, influenza and COVID-negative. Was febrile to 101 and tachypneic, tachycardic to 114, slight ST segment depressions globally, CT angiography showed diffuse interstitial infiltrates with small nodular densities, no PE. Started on Rocephin and doxycycline as well as transfuse 1 unit PRBCs. Review of Systems ROS Status of ROS 10 or more systems reviewed and unremarkable except as noted in history and below [facility] Medical History (Updated 01/31/25 @ 11:53 by FERN RASCON MD) Migraines ?G43.909 - Migraine, unspecified, not intractable, without status migrainosus (ICD-10) Depression ?F32.A - Depression, unspecified (ICD-10) High cholesterol ?E78.00 - Pure hypercholesterolemia, unspecified (ICD-10) Breast cancer in female ?C50.919 - Malignant neoplasm of unspecified site of unspecified female breast (ICD-10) Surgical History (Updated 01/31/25 @ 05:58 by Luisa Lauren) H/O tubal ligation ?Z98.51 - Tubal ligation status (ICD-10) History of breast reconstruction ?Z98.890 - Other specified postprocedural states (ICD-10) H/O right mastectomy ?Z90.11 - Acquired absence of right breast and nipple (ICD-10) Hx of tonsillectomy ?Z90.89 - Acquired absence of other organs (ICD-10) Family History (Updated 01/31/25 @ 03:13 by Luisa Lauren) Grandmother Family history of CHF (congestive heart failure) Father Family history of diabetes mellitus Social History (Updated 01/31/25 @ 03:15 by Luisa Lauren) Within the past year, how often did you have a drink containing alcohol: monthly or less Smoking status: Current every day smoker Non-prescribed substance use: cannabis (any form) Previous occupational history: retired Highest level of school completed/degree received: Associate degree: academic program Are you now , , , , never or living with a partner: never In a typical week, how many times do you talk on the telephone with family, friends, or neighbors: 3 or more times per week How often do you get together with friends or relatives: 3 or more times per week How often do you attend confucianism or zoroastrianism services: never Little interest or pleasure in doing things: not at all Feeling down, depressed, or hopeless: not at all Feel stressed/tense/nervous/anxious/difficulty sleeping: not at all Do you think of yourself as: straight/heterosexual Gender Identity: female Meds Home Medications and Allergies Home Medications ?Medication ?Instructions ?Recorded ?Confirmed ?Type albuterol sulfate 2.5 mg/3 mL 2.5 mg inhalation Q4H PRN 01/30/25 01/31/25 History (0.083 %) solution for nebulization shortness of breath or wheezing atorvastatin 40 mg tablet 40 mg PO HS 01/30/25 01/31/25 History budesonide-formoterol HFA 160 1 puff inhalation Q12H 01/30/25 01/31/25 History mcg-4.5 mcg/actuation aerosol inhaler (Symbicort) citalopram 40 mg tablet 40 mg PO QAM 01/30/25 01/31/25 History galcanezumab-gnlm 120 mg/mL 120 mg subcut .monthly 01/30/25 01/31/25 History subcutaneous pen injector (Emgality Pen) linaclotide 72 mcg capsule 72 mcg PO HS 01/30/25 01/31/25 History (Linzess) montelukast 10 mg tablet 10 mg PO DAILY 01/30/25 01/31/25 History pantoprazole 40 mg tablet,delayed 40 mg PO DAILY 01/30/25 01/31/25 History release pregabalin 200 mg capsule 200 mg PO TID 01/31/25 01/31/25 History tiotropium bromide 18 mcg capsule 1 cap inhalation QAM 01/31/25 01/31/25 History with inhalation device (Spiriva with HandiHaler) Allergies Allergy/AdvReac Type Severity Reaction Status Date / Time No Known Drug Allergies Allergy Verified 01/30/25 20:43 Exam Narrative Exam Narrative: General: cooperative and tired appearing Orientation: alert, awake and oriented x3 Head: normal to inspection Neck: normal visual inspection Cardio: no hepatojugular reflux or JVD, regular rate, regular rhythm Chest palpation & inspection: normal inspection of the chest Resp Effort & Inspection: normal respiratory effort, distant breath sounds, no shantel wheezes appreciated Abd: soft, non-tender, non-distended Extremities: Warm well perfused, no edema Constitutional Vital Signs, click to edit/add: Last Vital Signs Temp 97.6 F 01/31/25 08:14 Pulse 84 01/31/25 10:00 Resp 23 H 01/31/25 08:14 BP 117/52 01/31/25 08:14 Pulse Ox 88 L 01/31/25 08:14 O2 Del Method Nasal Cannula 01/31/25 08:14 O2 Flow Rate 3 01/31/25 08:14 Internal Medicine - H&P: Reslt Labs Labs: Short CBC 01/30/25 01/31/25 Range/Units 20:54 08:02 WBC 11.1 H 9.3 (4.0-11.0) 10^3/uL Hgb 5.9 L* 8.4 L (12.0-16.0) g/dL Hct 22.3 L* 29.1 L (36.0-48.0) % Plt Count 317 276 (150-450) 10^3/uL BMP 01/30/25 01/31/25 20:54 08:02 Sodium 134 L 138 Potassium 3.8 4.1 Chloride 98 101 Carbon Dioxide 27.8 27.7 BUN 13.0 13.0 Creatinine 0.74 0.61 Glucose 181 H 140 H Calcium 9.0 9.2 Liver Function 01/30/25 01/31/25 Range/Units 20:54 08:02 Total Bilirubin 0.6 0.8 (0.2-1.0) mg/dL AST 15 22 (15-37) U/L ALT 11 L 17 (14-59) U/L Alkaline Phosphatase 80 91 (46-116) U/L Albumin 2.6 L 2.7 L (3.4-5.0) g/dL Assessment and Plan Assessment and Plan (1) COPD exacerbation: (2) Hypoxia: (3) Community acquired pneumonia: Qualifiers: Laterality: right Lung location: lower lobe of lung Qualified Code(s): J18.9 - Pneumonia, unspecified organism (4) Elevated brain natriuretic peptide (BNP) level: (5) Smoker: Jazzy Ramsey is a 64 y/o F, history of smoking, hyperlipidemia, COPD not on home oxygen, iron deficiency anemia requiring IV iron infusions, presented to [place] emergency room with progressive shortness of breath starting on 01/27/2025, found to be hypoxic for COPD exacerbation versus pneumonia prompting request for medical admission. 1. Hypoxia 2/2 Community acquired pneumonia with COPD exacerbation - In the in the emergency room, WBC 11.1, hemoglobin 5.9, platelet count 317, sodium 134, potassium 3.8, BUN 13, creatinine 0.74, high-sensitivity troponin I 39.2, NT-proBNP 1966, influenza and COVID-negative. Was febrile to 101 and tachypneic, tachycardic to 114, slight ST segment depressions globally, CT angiography showed diffuse interstitial infiltrates with small nodular densities, no PE. Started on Rocephin and doxycycline as well as transfuse 1 unit PRBCs. - Continue community-acquired pneumonia antibiotic coverage, Rocephin and doxycycline - DuoNebs Q ID - Attempt to wean oxygen 2. Elevated NT pro BNP with diffuse T wave inversions - Likely demand ischemia on presentation, has multiple risk factors for CAD - Check echo to assess LV function - Repeat troponin 3. Microcytic anemia requiring blood transfusion - No evidence of active bleeding - Trend hemoglobin daily - Outpatient referral for potential iron infusion Diet: regular Daily Labs: CBC, BMP Lines/Drains: PIV DVT ppx: Lovenox Code status: Full Status: inpatient for hypoxia, COPD exacerbation
--- NOTE | 2025-01-31 10:15 | CA_ITS ---
Patient Name: HELADIO ESTRADA MR#: [id number] : 1960 Exam Date: 01/31/2025 Ordering Doctor: FERN RASCON ECHOCARDIOGRAM REPORT PROCEDURE: CA ECHO DOPPLER COMPLETE INDICATIONS: assess LV function, elevated BNP, COPD, breast cancer (right)-mastectomy COMPARISON: None. DESCRIPTION: COMPLETE ECHOCARDIOGRAM Real-time transthoracic echocardiography with 2D, M-mode, spectral and color flow Doppler performed. QUALITY: Technical quality was good. LEFT VENTRICLE: Normal chamber size. Normal left ventricular wall thickness. Normal left ventricle systolic function, no wall motion abnormalities. Calculated left ventricular ejection fraction is 64%. LV EF: Normal left ventricular ejection fraction, (>55%). DIASTOLIC: Normal diastolic function. ATRIAL SEPTUM: Visually appears intact. LEFT ATRIUM: Normal chamber size. RIGHT ATRIUM: Normal chamber size. RIGHT VENTRICLE: Normal chamber size. Normal right ventricular systolic function. TRICUSPID VALVE: Normal mobility and thickness. No stenosis with mild regurgitation. Doppler studies reveal severely (>60) elevated right sided pressures.RVSP 61 mmHg MITRAL VALVE: Normal mobility and thickness. No evidence of mitral valve stenosis. Mild mitral annular calcification. No mitral regurgitation. AORTIC VALVE: Normal trileaflet appearance. Mildly calcified aortic valve. Normal leaflet mobility. No evidence of aortic valve stenosis. No aortic regurgitation. AORTIC ROOT: Normal diameter and appearance. PULMONIC VALVE: Normal thickness and mobility. No stenosis. No regurgitation. PERICARDIUM: No evidence of pericardial effusion. IVC: IVC is dilated (2.2 cm), does not collapse. PLEURA: CONCLUSION: Normal left ventricle size and wall thickness, normal left ventricle systolic function without wall motion abnormalities, ejection fraction 64% Normal left ventricle diastolic function Normal right ventricle size and systolic function Severe pulmonary hypertension, RVSP 61 mmHg estimating RAP 15 mmHg Mild mitral annulus calcification No significant valvular abnormalities Dilated IVC, no significant collapse with respiration consistent with elevated central venous pressure, RAP 15 mmHg Adult Echocardiography Procedure Report Left Ventricle LVEDD (3.7 - 5.6 cm): 4.10 cm LVESD (2.2 - 4.0 cm): 2.69 cm LVIVS thickness (0.6 - 1.2 cm): 0.78 cm LVPW thickness (0.5 - 1.0 cm): 0.89 cm e': 0.15 m/s E - e': 5.80 LVOT Max Gradient: 10.55 mm[Hg] LVOT Area (cm2): 1.62 m/s Peak Velocity (LVOT): 1.62 m/s Mean Velocity (LVOT): 1.11 m/s LVOT Diameter 1.90 cm Left Ventricular Ejection Fraction: 64.33 % Left Atrium LA Volume Index (2D A2C): 33.80 ml/m2 Left Atrium Systolic Dimension: 3.58 cm Mitral Valve MV E to A Ratio: 0.68 Mitral Valve A-Wave Peak Velocity: 1.30 m/s Mitral Valve E-Wave Peak Velocity: 0.89 m/s Right Ventricle Aorta AO Root Diam: 3.26 cm Aortic Valve AoV Area (Peak Juan): 2.21 cm2, 2.21 cm2 AoV Area (VTI): 2.28 cm2, 2.28 cm2 Peak Velocity(Antegrade Flow): 2.09 m/s Peak Gradient(Antegrade Flow): 17.43 mm[Hg] Mean Velocity(Antegrade Flow): 1.37 m/s Mean Gradient(Antegrade Flow): 8.72 mm[Hg] Velocity Time Integral: 41.93 cm Tricuspid Valve Peak Velocity (Regurgitant Flow): 3.39 m/s Pulmonic Valve Mean Gradient: 4.44 mm[Hg] Mean Velocity: 0.98 m/s Peak Velocity: 1.41 m/s Peak Gradient: 7.95 mm[Hg] Right Atrium Right Atrium Systolic Pressure: 40.05 ml, 40.05 ml Dictated by: Pedro Hicks MD on 01/31/2025 at 18:07 Approved by: Pedro Hicks MD on 01/31/2025 at 18:15
--- NOTE | 2025-01-31 11:10 | CM.NOTE ---
Rounds made with Dr. Greer, discussed diagnosis and plan of care with pt. Pt continues to require oxygen. No discharge today, continue treatment as ordered.
[2025-01-31 11:38] LABS: Folate 12.80 ng/mL (8.60-58.90)
[2025-01-31] MEDS: DOXYCYCLINE HYCLATE 100 MG in 0.9 % SODIUM CHLORIDE 100 ML IV ×2 (12:01→23:31)
[2025-01-31 12:28] LABS: Ferritin 66.0 ng/mL (8.0-252.0)
--- NOTE | 2025-01-31 15:13 | NUTR.NU ---
Recommend Boost or Ensure 1 container p o daily nurtitional supplement for additional nutritional support
--- NOTE | 2025-01-31 16:07 | SWNOTE1 ---
SW consulted for financial concerns. SW attempted to see pt, but she was having procedure done in room. SW to stop back tomorrow. SW did speak with CM and pt used to have Medicaid as well, but they found out she owned a home and did not qualify anymore.
[2025-02-01] VITALS (25 sets, daily range): BP systolic 97–113; BP diastolic 51–68; PULSE 76–110; TEMP 36.4–36.8; O2SAT 90–97
[2025-02-01] MEDS: ACETAMINOPHEN 325 MG TABLET 650 MG PO (00:48)
[2025-02-01] MEDS: GUAIFENESIN 200 MG/DEXTROMETHORPHAN 20 MG 10 ML UNIT DOSE CUP PO ×2 (00:49→10:54)
[2025-02-01 04:12] LABS: Vitamin B12 441 pg/mL (232-1245)
[2025-02-01 05:31] LABS: Hematocrit 28.9 % (36.0-48.0); Hemoglobin 8.2 g/dL (12.0-16.0); Immature Granulocytes Abs Auto 0.20 10^3/uL (0.00-0.03); Immature Granulocytes Pct Auto 2.0 % (0.0-0.5); Lymphocytes Absolute Auto 1.1 10^3/uL (1.2-3.8); Mean Corpuscular HGB Conc 28.4 g/dL (29.9-35.2); Mean Corpuscular Hemoglobin 21.8 pg (26.7-34.0); Mean Corpuscular Volume 76.9 fL (81.0-99.0); Platelet Count 303 10^3/uL (150-450); Red Blood Count 3.76 10^6/uL (4.20-5.40); White Blood Count 9.8 10^3/uL (4.0-11.0)
[2025-02-01 05:43] LABS: Anion Gap 12.5; Blood Urea Nitrogen 15.0 mg/dL (7.0-18.0); Calcium 8.9 mg/dL (8.5-10.1); Carbon Dioxide 28.4 mmol/L (21.0-32.0); Chloride 106 mmol/L (98-107); Estimated GFR (African America >60 (>=60 mL/min/1.73m^2); Estimated GFR (Non-African Ame >60 (>=60 mL/min/1.73m^2); Glucose 117 mg/dL (74-106); Potassium 3.9 mmol/L (3.5-5.1); Sodium 143 mmol/L (136-145)
[2025-02-01] MEDS: PANTOPRAZOLE SODIUM 40 MG TABLET.DR PO (05:56)
[2025-02-01] MEDS: IPRATROPIUM/ALBUTEROL SULFATE 3 ML AMPUL.NEB IH ×3 (06:59→21:56)
[2025-02-01 07:22] LABS: Glucose Urine UA 250 mg/dL (NEGATIVE)
[2025-02-01 07:53] LABS: Cast Seen? NONE SEEN #/LPF (NONE SEEN); Crystals Seen? None Seen #/HPF (None Seen); Urine Culture Indicated YES-FRMC
[2025-02-01] MEDS: METHYLPREDNISOLONE SOD SUCC PF 40 MG/ML VIAL IVP (08:35)
[2025-02-01] MEDS: ENOXAPARIN SODIUM 40 MG/0.4 ML SYRINGE SUBQ (08:35)
--- NOTE | 2025-02-01 09:48 | SWNOTE1 ---
SW met with pt to discuss financial concerns and discharge planning. Pt lives at home with her friend. Pt does not wear home oxygen and she does not use any DME to get around. Pt and SW spoke about her financial situation. Pt used to have [employer] Medicare/Medicaid dual plan. Back in June pt found out she does not qualify for Medicaid anymore since she is still on the house deed on her home that her daughter is living in. She stated she was told that her plan would end on January 16. Pt does have Medicare part A&B, per patient. At this time she does not have part D for prescription coverage. She thinks in February she will have [employer] Medicare. At this time pt is concerned about cost of her medications at discharge. SW advised that we can look in to that once she is stable for discharge. Pt is also worried about her hospital stay and the cost of that. SW offered to reach out to Madelyn in [facility] to let her know pt's concerns and if she can assist in any way. Pt voiced appreciation. At this time pt has no other concerns. Pt may need home oxygen at discharge. SW to follow as needed.
--- NOTE | 2025-02-01 10:51 | ECG_ITS ---
[facility] Test Date: 2025-02-01 Pat Name: HELADIO ESTRADA Department: Room: [facility] Gender: Female Chief Nurse Anesthetist: : 1960 Requested By: [id number] Order Number: [id number] Reading MD: KATH WONG Measurements Intervals Logan Rate: 92 P: 75 AR: 147 QRS: 60 QRSD: 84 T: 28 QT: 356 QTc: 440 Interpretive Statements SINUS RHYTHM MODERATE ST DEPRESSION [0.05+ mV ST DEPRESSION] Compared to ECG 01/30/2025 20:47:36 Sinus tachycardia no longer present ST (T wave) deviation still present Electronically Signed On 02-01-2025 16:43:20 EST by KATH WONG
--- NOTE | 2025-02-01 10:55 | SWNOTE1 ---
MARGOTH did reach out to Madelyn at [facility] in regards to pt's concerns about her hospital stay and bill. Madelyn replied that she will reach out to pt about financial assistance.
--- NOTE | 2025-02-01 11:22 | SWNOTE1 ---
Pt also let SW know that she does go to [facility] to see her PCP which is Nanette Webb. She stated they have their own pharmacy there and usually her medications do not cost anything. SW did re-assure her we will look at cost of meds once she is medically stable for discharge.
--- NOTE | 2025-02-01 11:27 | CM.NOTE ---
Rounded with Dr Greer. Pt still requiring oxygen. Will need walk study before discharge. No discharge today.
--- NOTE | 2025-02-01 11:45 | P.IMPN_ITS ---
Progress Note: A&P Assessment and Plan (1) COPD exacerbation: (2) Hypoxia: (3) Community acquired pneumonia: Qualifiers: Laterality: right Lung location: lower lobe of lung Qualified Code(s): J18.9 - Pneumonia, unspecified organism (4) Elevated brain natriuretic peptide (BNP) level: (5) Smoker: (6) Pulmonary hypertension: Plan Ivan Ramsey is a 64 y/o F, history of smoking, hyperlipidemia, COPD not on home oxygen, iron deficiency anemia requiring IV iron infusions, presented to [place] emergency room with progressive shortness of breath starting on 01/27/2025, found to be hypoxic for COPD exacerbation versus pneumonia prompting request for medical admission. 1. Hypoxia 2/2 Community acquired pneumonia with COPD exacerbation - In the in the emergency room, WBC 11.1, hemoglobin 5.9, platelet count 317, sodium 134, potassium 3.8, BUN 13, creatinine 0.74, high-sensitivity troponin I 39.2, NT-proBNP 1966, influenza and COVID-negative. Was febrile to 101 and tachypneic, tachycardic to 114, slight ST segment depressions globally, CT angiography showed diffuse interstitial infiltrates with small nodular densities, no PE. Started on Rocephin and doxycycline as well as transfuse 1 unit PRBCs. - Continue community-acquired pneumonia antibiotic coverage, Rocephin and doxycycline - DuoNebs QID - Continue supplemental O2, attempt to wean 2. Elevated NT pro BNP with diffuse T wave inversions - Likely demand ischemia on presentation, has multiple risk factors for CAD - Echo shows EF 64%, RVSP 61 consistent with severe pulmonary HTN however CT PE showed no PE - will need outpatient f/u with pulm - Repeat troponin flat, no concern for ACS/cardiac event 3. Microcytic anemia requiring blood transfusion - No evidence of active bleeding - Trend hemoglobin daily, stable after transfusion - Outpatient referral for potential iron infusion Diet: regular Daily Labs: CBC, BMP Lines/Drains: PIV DVT ppx: Lovenox Code status: Full Status: inpatient for hypoxia, COPD exacerbation, pneumonia Internal Medicine - PN: Subj Subjective Interval history: Continues to have coughing episodes with desaturations, feels short of breath without oxygen. No fevers or chills overnight. Exam Narrative Exam Narrative: General: cooperative and tired appearing Orientation: alert, awake and oriented x3 Head: normal to inspection Neck: normal visual inspection Cardio: no JVD, regular rate, regular rhythm Chest palpation & inspection: normal inspection of the chest Resp Effort & Inspection: normal respiratory effort, distant breath sounds Abd: soft, non-tender, non-distended Extremities: Warm well perfused, no edema Constitutional Vital Signs, click to edit/add: Last Vital Signs Temp 97.9 F 02/01/25 07:45 Pulse 89 02/01/25 09:59 Resp 24 H 02/01/25 07:05 BP 97/57 02/01/25 07:45 Pulse Ox 91 L 02/01/25 11:31 O2 Del Method Nasal Cannula 02/01/25 11:31 O2 Flow Rate 3 02/01/25 11:31 Internal Medicine - PN: Obj Da Labs Labs: Laboratory Results - last 24 hr 01/31/25 01/31/25 02/01/25 08:02 12:03 05:05 WBC 9.8 RBC 3.76 L Hgb 8.2 L Hct 28.9 L MCV 76.9 L MCH 21.8 L MCHC 28.4 L RDW 20.1 H Plt Count 303 MPV 10.1 Neut % (Auto) 79.5 H Lymph % (Auto) 11.2 L [place] % (Auto) 7.0 Eos % (Auto) 0.1 L Baso % (Auto) 0.2 Neut # (Auto) 7.8 H Lymph # (Auto) 1.1 L [place] # (Auto) 0.7 Eos # (Auto) 0.0 Baso # (Auto) 0.0 Abs Immat Gran (auto) 0.20 H Imm/Tot Granulo (auto) 2.0 H Sodium 143 Potassium 3.9 Chloride 106 Carbon Dioxide 28.4 Anion Gap 12.5 BUN 15.0 Creatinine 0.59 Est GFR ( Amer) >60 Est GFR (Non-Af Amer) >60 BUN/Creatinine Ratio 25.4 Glucose 117 H Calcium 8.9 Ferritin 66.0 Troponin I High Sens 44.4 Vitamin B12 441 Folate 12.80 Urine Color Urine Clarity Urine pH Ur Specific [place] Urine Protein Urine Glucose (UA) Urine Ketones Urine Occult Blood Urine Nitrite Urine Bilirubin Urine Urobilinogen Ur Leukocyte Esterase Urine RBC Urine WBC Ur Squamous Epith Cells Urine Crystals Urine Bacteria Urine Casts Urine Mucus Ur Culture Indicated? 02/01/25 06:40 WBC RBC Hgb Hct MCV MCH MCHC RDW Plt Count MPV Neut % (Auto) Lymph % (Auto) [place] % (Auto) Eos % (Auto) Baso % (Auto) Neut # (Auto) Lymph # (Auto) [place] # (Auto) Eos # (Auto) Baso # (Auto) Abs Immat Gran (auto) Imm/Tot Granulo (auto) Sodium Potassium Chloride Carbon Dioxide Anion Gap BUN Creatinine Est GFR ( Amer) Est GFR (Non-Af Amer) BUN/Creatinine Ratio Glucose Calcium Ferritin Troponin I High Sens Vitamin B12 Folate Urine Color Yellow Urine Clarity Clear Urine pH 6.0 Ur Specific [place] 1.020 Urine Protein Trace Urine Glucose (UA) 250 A Urine Ketones Negative Urine Occult Blood Negative Urine Nitrite Negative Urine Bilirubin Negative Urine Urobilinogen 1.0 Ur Leukocyte Esterase Negative Urine RBC None seen Urine WBC 5-10 A Ur Squamous Epith Cells Few A Urine Crystals None seen Urine Bacteria Moderate A Urine Casts None seen Urine Mucus Trace A Ur Culture Indicated? Yes-[facility] [place]
[2025-02-01] MEDS: DOXYCYCLINE HYCLATE 100 MG in 0.9 % SODIUM CHLORIDE 100 ML IV ×2 (11:54→23:34)
[2025-02-02] VITALS (22 sets, daily range): BP systolic 90–119; BP diastolic 50–74; PULSE 85–102; TEMP 36.6–37.1; O2SAT 88–98
[2025-02-02 05:37] LABS: Hematocrit 29.6 % (36.0-48.0); Hemoglobin 8.2 g/dL (12.0-16.0); Immature Granulocytes Abs Auto 0.13 10^3/uL (0.00-0.03); Immature Granulocytes Pct Auto 1.6 % (0.0-0.5); Lymphocytes Absolute Auto 1.5 10^3/uL (1.2-3.8); Mean Corpuscular HGB Conc 27.7 g/dL (29.9-35.2); Mean Corpuscular Hemoglobin 21.8 pg (26.7-34.0); Mean Corpuscular Volume 78.7 fL (81.0-99.0); Platelet Count 326 10^3/uL (150-450); Red Blood Count 3.76 10^6/uL (4.20-5.40); White Blood Count 8.3 10^3/uL (4.0-11.0)
[2025-02-02] MEDS: PANTOPRAZOLE SODIUM 40 MG TABLET.DR PO (05:45)
[2025-02-02 05:46] LABS: Anion Gap 11.0; Blood Urea Nitrogen 16.0 mg/dL (7.0-18.0); Calcium 8.9 mg/dL (8.5-10.1); Carbon Dioxide 30.8 mmol/L (21.0-32.0); Chloride 106 mmol/L (98-107); Estimated GFR (African America >60 (>=60 mL/min/1.73m^2); Estimated GFR (Non-African Ame >60 (>=60 mL/min/1.73m^2); Glucose 89 mg/dL (74-106); Potassium 3.8 mmol/L (3.5-5.1); Sodium 144 mmol/L (136-145)
[2025-02-02] MEDS: METHYLPREDNISOLONE SOD SUCC PF 40 MG/ML VIAL IVP (08:05)
[2025-02-02] MEDS: ACETAMINOPHEN 325 MG TABLET 650 MG PO ×2 (08:05→17:14)
[2025-02-02] MEDS: ENOXAPARIN SODIUM 40 MG/0.4 ML SYRINGE SUBQ (08:06)
[2025-02-02] MEDS: IPRATROPIUM/ALBUTEROL SULFATE 3 ML AMPUL.NEB IH ×3 (09:12→20:54)
--- NOTE | 2025-02-02 10:50 | CM.NOTE ---
Rounds made with Dr. Greer, discussed plan of care with pt. No discharge today, pt will need walk test when ready for discharge. Continue treatment as ordered.
[2025-02-02] MEDS: DOXYCYCLINE HYCLATE 100 MG in 0.9 % SODIUM CHLORIDE 100 ML IV (11:33)
--- NOTE | 2025-02-02 12:04 | P.IMPN_ITS ---
Progress Note: A&P Assessment and Plan (1) COPD exacerbation: (2) Hypoxia: (3) Community acquired pneumonia: Qualifiers: Laterality: right Lung location: lower lobe of lung Qualified Code(s): J18.9 - Pneumonia, unspecified organism (4) Elevated brain natriuretic peptide (BNP) level: (5) Smoker: (6) Pulmonary hypertension: Plan Ivan Ramsey is a 64 y/o F, history of smoking, hyperlipidemia, COPD not on home oxygen, iron deficiency anemia requiring IV iron infusions, presented to [place] emergency room with progressive shortness of breath starting on 01/27/2025, found to be hypoxic for COPD exacerbation versus pneumonia prompting request for medical admission. 1. Hypoxia 2/2 Community acquired pneumonia with COPD exacerbation 2. severe pulmonary hypertension - In the in the emergency room, WBC 11.1, hemoglobin 5.9, platelet count 317, sodium 134, potassium 3.8, BUN 13, creatinine 0.74, high-sensitivity troponin I 39.2, NT-proBNP 1966, influenza and COVID-negative. Was febrile to 101 and tachypneic, tachycardic to 114, slight ST segment depressions globally, CT angiography showed diffuse interstitial infiltrates with small nodular densities, no PE. Started on Rocephin and doxycycline as well as transfuse 1 unit PRBCs. - Continue community-acquired pneumonia antibiotic coverage, Rocephin and doxycycline - DuoNebs QID - Continue supplemental O2, anticipate need for home O2 given severe pulmonary hypertension, suspected class III - will need outpatient pulmonology referral on discharge 3. Elevated NT pro BNP with diffuse T wave inversions - Likely demand ischemia on presentation, has multiple risk factors for CAD - Echo shows EF 64%, RVSP 61 consistent with severe pulmonary HTN however CT PE showed no PE - will need outpatient f/u with pulm - Repeat troponin flat, no concern for ACS/cardiac event 4. Microcytic anemia requiring blood transfusion - No evidence of active bleeding - Trend hemoglobin daily, stable after transfusion - Outpatient referral for potential iron infusion Diet: regular Daily Labs: CBC, BMP Lines/Drains: PIV DVT ppx: Lovenox Code status: Full Status: inpatient for hypoxia, COPD exacerbation, pneumonia Internal Medicine - PN: Subj Subjective Interval history: Feels improvement compared to admission and yesterday, continues to require 4 L nasal cannula. Discussed smoking cessation. Exam Narrative Exam Narrative: General: cooperative and tired appearing Orientation: alert, awake and oriented x3 Head: normal to inspection Neck: normal visual inspection Cardio: no JVD, regular rate, regular rhythm Chest palpation & inspection: normal inspection of the chest Resp Effort & Inspection: normal respiratory effort, persistent expiratory wheezes bilateral Abd: soft, non-tender, non-distended Extremities: Warm well perfused, no edema Constitutional Vital Signs, click to edit/add: Last Vital Signs Temp 97.9 F 02/02/25 08:04 Pulse 89 02/02/25 12:00 Resp 24 H 02/02/25 08:04 BP 112/65 02/02/25 08:04 Pulse Ox 93 L 02/02/25 09:16 O2 Del Method Nasal Cannula 02/02/25 09:16 O2 Flow Rate 4 02/02/25 09:16 Internal Medicine - PN: Obj Da Labs Labs: Laboratory Results - last 24 hr 02/02/25 05:29 WBC 8.3 RBC 3.76 L Hgb 8.2 L Hct 29.6 L MCV 78.7 L MCH 21.8 L MCHC 27.7 L RDW 21.2 H Plt Count 326 MPV 10.5 Neut % (Auto) 70.3 Lymph % (Auto) 18.5 L [place] % (Auto) 8.7 Eos % (Auto) 0.7 L Baso % (Auto) 0.2 Neut # (Auto) 5.8 Lymph # (Auto) 1.5 [place] # (Auto) 0.7 Eos # (Auto) 0.1 Baso # (Auto) 0.0 Abs Immat Gran (auto) 0.13 H Imm/Tot Granulo (auto) 1.6 H Sodium 144 Potassium 3.8 Chloride 106 Carbon Dioxide 30.8 Anion Gap 11.0 BUN 16.0 Creatinine 0.59 Est GFR ( Amer) >60 Est GFR (Non-Af Amer) >60 BUN/Creatinine Ratio 27.1 Glucose 89 Calcium 8.9
[2025-02-02] MEDS: GUAIFENESIN 200 MG/DEXTROMETHORPHAN 20 MG 10 ML UNIT DOSE CUP PO (17:14)
[2025-02-02] MEDS: 0.9 % SODIUM CHLORIDE 250 ML 10 ML IV (23:55)
[2025-02-03] VITALS (17 sets, daily range): BP systolic 107–142; BP diastolic 65–72; PULSE 86–104; TEMP 36.6–36.9; O2SAT 80–95
[2025-02-03] MEDS: DOXYCYCLINE HYCLATE 100 MG in 0.9 % SODIUM CHLORIDE 100 ML IV (00:32)
[2025-02-03] MEDS: GUAIFENESIN 200 MG/DEXTROMETHORPHAN 20 MG 10 ML UNIT DOSE CUP PO (03:11)
[2025-02-03 05:18] LABS: Hematocrit 31.5 % (36.0-48.0); Hemoglobin 8.5 g/dL (12.0-16.0); Immature Granulocytes Abs Auto 0.20 10^3/uL (0.00-0.03); Immature Granulocytes Pct Auto 2.0 % (0.0-0.5); Lymphocytes Absolute Auto 1.8 10^3/uL (1.2-3.8); Mean Corpuscular HGB Conc 27.0 g/dL (29.9-35.2); Mean Corpuscular Hemoglobin 21.6 pg (26.7-34.0); Mean Corpuscular Volume 80.2 fL (81.0-99.0); Platelet Count 372 10^3/uL (150-450); Red Blood Count 3.93 10^6/uL (4.20-5.40); White Blood Count 9.9 10^3/uL (4.0-11.0)
[2025-02-03 05:28] LABS: Anion Gap 5.8; Blood Urea Nitrogen 11.0 mg/dL (7.0-18.0); Calcium 8.7 mg/dL (8.5-10.1); Carbon Dioxide 34.9 mmol/L (21.0-32.0); Chloride 108 mmol/L (98-107); Estimated GFR (African America >60 (>=60 mL/min/1.73m^2); Estimated GFR (Non-African Ame >60 (>=60 mL/min/1.73m^2); Glucose 96 mg/dL (74-106); Potassium 3.7 mmol/L (3.5-5.1); Sodium 145 mmol/L (136-145)
[2025-02-03] MEDS: PANTOPRAZOLE SODIUM 40 MG TABLET.DR PO (05:33)
[2025-02-03] MEDS: ACETAMINOPHEN 325 MG TABLET 650 MG PO (08:13)
[2025-02-03] MEDS: METHYLPREDNISOLONE SOD SUCC PF 40 MG/ML VIAL IVP (08:13)
[2025-02-03] MEDS: ENOXAPARIN SODIUM 40 MG/0.4 ML SYRINGE SUBQ (08:13)
[2025-02-03] MEDS: IPRATROPIUM/ALBUTEROL SULFATE 3 ML AMPUL.NEB IH ×2 (09:13→15:15)
--- NOTE | 2025-02-03 10:40 | CM.NOTE ---
Rounds made with Dr. Greer, pt will discharge to home today and f/u with PCP and [facility] as new pt. Pt will have walk test for need for home oxygen at discharge.
--- NOTE | 2025-02-03 11:05 | PC.NURSE ---
pt on 3lnc, sitting with O2 85%, desats with conversation and exercise. O2 increased to 5lnc to maintain 87% with exercise.
--- NOTE | 2025-02-03 12:14 | P.DS_ITS ---
DS: Providers Provider Date of admission: 01/31/25 02:43 Primary care physician: Nanette Webb NP Admitting clinician: Mohsen Porter Attending physician on admission: Mohsen Porter Consults: 01/31/25 Consult to Wafer Line Worker Routine Reason for consult:: Financial Concerns Attending physician on discharge: FERN RASCON Discharging clinician: FERN RASCON DS: Diagnosis Discharge Diagnosis (1) COPD exacerbation: (2) Hypoxia: (3) Community acquired pneumonia: Qualifiers: Laterality: right Lung location: lower lobe of lung Qualified Code(s): J18.9 - Pneumonia, unspecified organism (4) Elevated brain natriuretic peptide (BNP) level: (5) Smoker: (6) Pulmonary hypertension: (7) Microcytic anemia: DS: Summary Hospital Course Hospital Course: Ivan Ramsey is a 64 y/o F, history of smoking, hyperlipidemia, COPD not on home oxygen, iron deficiency anemia requiring IV iron infusions, presented to [place] emergency room with progressive shortness of breath starting on 01/27/2025, found to be hypoxic for COPD exacerbation versus pneumonia prompting request for medical admission. She was transfused 1 unit pRBC in the ER, hgb remained stable throughout admission. Admitted and started on supplemental O2, rocephin and doxycycline for pneumonia, methylprednisone 40 mg daily and duonebs for COPD exacerbation. She symptomatically improved but continued to be hypoxic, echocardiogram showed EF 64%, RVSP 61, consistent with severe pulmonary hypertension likely class III 2/2 COPD as suspected long standing need for supplemental O2. Discharged on 02/03/25 in improved condition with need for 3 L NC at rest and 5 L with exertion, counseled on need for smoking cessation and referral placed for outpatient pulmonology at [facility]. Time Spent with Patient Time attestation: Total time spent providing and/or coordinating discharge services: Exam Narrative Exam Narrative: General: cooperative and tired appearing Orientation: alert, awake and oriented x3 Head: normal to inspection Neck: normal visual inspection Cardio: no JVD, regular rate, regular rhythm Chest palpation & inspection: normal inspection of the chest Resp Effort & Inspection: normal respiratory effort Abd: soft, non-tender, non-distended Extremities: Warm well perfused, no edema Constitutional Vital Signs, click to edit/add: Last Vital Signs Temp 97.9 F 02/03/25 07:28 Pulse 92 H 02/03/25 12:00 Resp 22 H 02/03/25 07:28 BP 142/72 H 02/03/25 07:28 Pulse Ox 90 L 02/03/25 09:17 O2 Del Method Nasal Cannula 02/03/25 11:43 O2 Flow Rate 3 02/03/25 11:43 DS: Data Data Completed and Pending Labs on day of discharge: Labs from last 24 hours 02/03/25 05:00 WBC 9.9 RBC 3.93 L Hgb 8.5 L Hct 31.5 L MCV 80.2 L MCH 21.6 L MCHC 27.0 L RDW 22.0 H Plt Count 372 MPV 9.8 Neut % (Auto) 72.3 Lymph % (Auto) 18.1 L [place] % (Auto) 6.6 Eos % (Auto) 0.8 L Baso % (Auto) 0.2 Neut # (Auto) 7.1 H Lymph # (Auto) 1.8 [place] # (Auto) 0.7 Eos # (Auto) 0.1 Baso # (Auto) 0.0 Abs Immat Gran (auto) 0.20 H Imm/Tot Granulo (auto) 2.0 H Sodium 145 Potassium 3.7 Chloride 108 H Carbon Dioxide 34.9 H Anion Gap 5.8 BUN 11.0 Creatinine 0.45 L Est GFR ( Amer) >60 Est GFR (Non-Af Amer) >60 BUN/Creatinine Ratio 24.4 Glucose 96 Calcium 8.7 Preliminary micro results at discharge 01/30/25 21:00 Blood Culture Result 2 - Preliminary Blood - Left Antecubital NO GROWTH AT 36-48 HOURS. FINAL TO FOLLOW. 01/30/25 20:55 Blood Culture Result 1 - Preliminary Blood - Left Hand NO GROWTH AT 36-48 HOURS. FINAL TO FOLLOW. Discharge Plan Discharge Disposition: Home, Self-Care Condition: Fair Discharge Medications: New ipratropium-albuterol 0.5 mg-3 mg(2.5 mg base)/3 mL Solution For Nebulization 3 ml inhalation RTTID 30 Days Qty: 30 0RF albuterol sulfate 2.5 mg /3 mL (0.083 %) Solution For Nebulization 2.5 mg inhalation Q4H PRN (Reason: Wheezing or shortnesss of pipo) 30 Days Qty: 30 0RF cefdinir 300 mg capsule 300 mg PO BID 2 Days Qty: 4 0RF doxycycline hyclate 100 mg capsule 100 mg PO BID 2 Days Qty: 4 0RF prednisone 20 mg tablet 40 mg PO DAILY 2 Days Qty: 4 0RF Continued atorvastatin 40 mg tablet 40 mg PO HS citalopram 40 mg tablet 40 mg PO QAM pantoprazole 40 mg tablet,delayed release (DR/EC) 40 mg PO DAILY montelukast 10 mg tablet 10 mg PO DAILY budesonide-formoterol [Symbicort] 160-4.5 mcg/actuation HFA aerosol inhaler 1 puff INHALATION Q12H Linzess 72 mcg capsule 72 mcg PO HS Emgality Pen 120 mg/mL pen injector 120 mg SUBCUT .monthly pregabalin 200 mg capsule 200 mg PO TID tiotropium bromide [Spiriva with HandiHaler] 18 mcg capsule, w/inhalation device 1 cap INHALATION QAM albuterol sulfate 2.5 mg /3 mL (0.083 %) solution for nebulization 2.5 mg inhalation Q4H PRN (Reason: shortness of breath or wheezing) 30 Days Qty: 30 0RF Print Language: Serbian Patient Instructions: COPD (Chronic Obstructive Pulmonary Disease) (DC), Pulmonary Arterial Hypertension (DC) Activity Restrictions/Additional Instructions: - Please follow up with a inspector rag sorting at [facility] for further management of your COPD and pulmonary hypertension Forms: Portal Instructions Follow Up Appointments: Tues. Zaman NP, 2024 at 5:00pm, [facility], [address] [place] [address], , This office will call with appointment
--- NOTE | 2025-02-03 12:14 | SWNOTE1 ---
SW spoke to CM and pt will need home oxygen and she does not have a preference on home oxygen company. MARGOTH to send referral to [facility].
--- NOTE | 2025-02-03 12:39 | SWNOTE1 ---
SW faxed face sheet, prescription, dc summary with need for home 02, and walk test to [facility].
--- NOTE | 2025-02-03 13:00 | CM.NOTE ---
CM spoke with pt regarding importance of f/u with [employer] Tying Machine [employer] and preventative care. Pt also provided with information regarding Pulmonary rehab, pt could speak with atmospheric physics professor at appointment if interested.
--- NOTE | 2025-02-03 13:18 | CM.NOTE ---
CM updated Dr. Greer pt will need 5L NC for activity. Dr. Greer aware, pt will still D/C to home today.
--- NOTE | 2025-02-03 14:06 | SWNOTE1 ---
MARGOTH called [facility] and spoke with Lauro. Lauro voiced they have the order and will review it quickly and let SW know if they need anything else. MARGOTH asked if we should wait to discharge until we have the 100% good to go.
--- NOTE | 2025-02-03 14:13 | PC.NURSE ---
Pt unable to ambulate on room air d/t low oxygen sat.
--- NOTE | 2025-02-03 14:21 | SWNOTE1 ---
MARGOTH received a call from Lauro at [facility] and the reviewers did state they do need the walk test documented differently. MARGOTH spoke with CM and walk test was placed in to the walk test documentation. MARGOTH faxed the updated documented walk test to [facility].
--- NOTE | 2025-02-03 14:58 | SWNOTE1 ---
MARGOTH called and spoke with Lauro at [facility] and pt's home oxygen is all set. Pt is going home with 3 liters at rest and 5 liters with exertion. Home oxygen is from [facility]. MARGOTH took tank to pt and let her know to call [facility] once she arrives home so they can deliver the rest of the oxygen supplies. [facility] does have a blue sheet of paper attached with phone number for pt's to call once they arrive home. MARGOTH updated nurse.
--- NOTE | 2025-02-03 16:35 | PC.NURSE ---
dc instructions given to pt and sig other. both verbalize understanding. belongings packed per pt. educated on use of O2 tank and adjustments. verbalized understanding. taken to exit via wheelchair, discharged to private vehicle.
--- NOTE | 2025-02-04 13:02 | CM.DCFOLLOWU ---
1st attempt 02/04, no answer
== END 2025-02-03 16:30 | disposition home or self-care (01) | DRG 190 ==
LOC: ER 01-31 02:22 → MS 01-31 02:50
PROVIDERS: Internal Medicine; Admitting Provider Student in an Organized Health Care Education/Training Program; Emergency Provider Student in an Organized Health Care Education/Training Program; PCP Nurse Practitioner Family; Visit Provider Student in an Organized Health Care Education/Training Program
DX: J44.1 Chronic obstructive pulmonary disease with (acute) exacerbation (principal); J18.9 Pneumonia, unspecified organism; J44.0 Chronic obstructive pulmonary disease with (acute) lower respiratory infection; I27.20 Pulmonary hypertension, unspecified; Z99.81 Dependence on supplemental oxygen; R09.02 Hypoxemia; D50.9 Iron deficiency anemia, unspecified; F17.210 Nicotine dependence, cigarettes, uncomplicated; E78.00 Pure hypercholesterolemia, unspecified; Z87.01 Personal history of pneumonia (recurrent); R50.9 Fever, unspecified; Z85.3 Personal history of malignant neoplasm of breast; Z98.51 Tubal ligation status; Z90.11 Acquired absence of right breast and nipple; R79.89 Other specified abnormal findings of blood chemistry
CPT/HCPCS: 36415; 36430; 71046; 71275; 80048; 80053; 81001; 82607; 82728; 82746; 83540; 83550; 83605; 83735; 83880; 84100; 84484; 85007; 85025; 85027; 85045; 86850; 86900; 86901; 87040; 87070; 87086; 87205; 87804; 87811; 93005; 93306; 94640; 94761; 96365; 96368; 99285; 99406; G0328; J0696; J1650; J2919; P9016; Q9967